=== PATIENT | female | born 1965 | race Caucasian/White ===

== ENCOUNTER 2017-07-28 13:38 | Emergency (ER) | payer SELFPAY ==
[~2017-07-28] VITALS: Ht 156.2 cm; Wt 75.0 kg
[2017-07-28 13:39] VITALS: BP 116/77; PULSE 104; RESP 20; TEMP 100.2; O2SAT 97
[2017-07-28] MEDS ORDERED: PRED20 PO (14:42)
[2017-07-28] MEDS ORDERED: BENZ100 PO (14:42)
[2017-07-28] MEDS ORDERED: ALBUAER3 INH (14:42)
[2017-07-28] MEDS ORDERED: AZIT250T3 PO (14:42)
--- NOTE | 2017-07-28 14:42 | PD ---
HPI Chief Complaint: Cold / Flu Symptoms Time Seen by Provider: 14:25 Travel History International Travel<30 days: No Contact w/Intl Traveler<30days: No Traveled to known affect area: No History of Present Illness HPI This is a 51-year-old female here with productive cough and colored sputum for the last 3 days. Patient reports she has had mild URI-like symptoms for the last 3 weeks. She reports all symptoms improved with the exception of a cough which is now productive. Denies fevers, chills, shortness of breath. She does report a harsh sounding cough which keeps her up at night. She is not a smoker. Symptom severity is moderate. No aggravating or alleviating factors. PFSH Past Medical History Medical History: Denies Significant Hx Tetanus Vaccination: Unknown ?: Not : 3 Para: 3 Past Surgical History Surgical History: No Previous Surgery Social History Alcohol Use: No Tobacco Use: No Substance Use: No Allergies-Medications (Allergen,Severity, Reaction): Coded Allergies: No Known Allergies (Unverified , 07/28/17) Reported Meds & Prescriptions Reported Meds & Active Scripts Active No Active Prescriptions or Reported Medications Review of Systems Except as stated in HPI: all other systems reviewed are Neg General / Constitutional: No: Fever Eyes: No: Visual changes HENT: No: Headaches Cardiovascular: No: Chest Pain or Discomfort Respiratory: Positive: Cough Gastrointestinal: No: Abdominal Pain Genitourinary: No: Dysuria Musculoskeletal: No: Pain Skin: No Rash Physical Exam Narrative GENERAL: Alert well-appearing 51-year-old male SKIN: Warm and dry. No rash HEAD: Normocephalic. EYES: Pupils equal, round, reactive to light. EOMs intact. No injection or drainage. Ear/nose/throat: No TM erythema. Clear nasal discharge. Mild pharyngeal erythema without tonsillar hypertrophy or exudate. NECK: Supple, trachea midline. No meningismus CARDIOVASCULAR: Regular rate and rhythm RESPIRATORY: Breath sounds equal bilaterally. No accessory muscle use. Rhonchorous cough GASTROINTESTINAL: Abdomen soft, non-tender, nondistended. MUSCULOSKELETAL: No cyanosis, or edema. BACK: No CVA tenderness. Data Data Last Documented VS Vital Signs Date Time Temp Pulse Resp B/P (MAP) Pulse Ox O2 Delivery O2 Flow Rate FiO2 07/28/17 13:39 100.2 104 20 116/77 (90) 97 Room Air MDM Medical Decision Making Medical Screen Exam Complete: Yes Emergency Medical Condition: Yes Differential Diagnosis Bronchitis, pneumonia, influenza Narrative Course This is a 51-year-old female here with a productive cough 4 days with URI like symptoms for approximately 3 weeks. She has a low-grade fever 100.2 and mild tachycardia with a heart rate of 104. She is nontoxic appearing. Given the length of her symptoms. Patient will be treated with azithromycin, steroids, bronchodilator, antitussives. She is instructed to follow-up with her primary doctor. Return if new or worsening symptoms. Diagnosis Primary Impression: Bronchitis Referrals: Primary Care Physician Additional Instructions: Medications as directed. Tylenol or ibuprofen for fever. Stay well hydrated by drinking plenty of fluids. Follow-up with her primary doctor. Return if he had new or worsening symptoms. Scripts Benzonatate (Tessalon Perles) 100 Mg Cap 100 MG PO TID Y for COUGH, #15 CAP 0 Refills Prov: Yenny Boyer 07/28/17 Albuterol 8.5 GM Inh (Proair Hfa 8.5 GM Inh) 90 Mcg/Act Aer 2 PUFF INH Q4-6H Y for SHORTNESS OF BREATH, #1 INHALER 0 Refills 108 mcg/actuation Prov: Yenny Boyer 07/28/17 Prednisone (Prednisone) 20 Mg Tab 40 MG PO DAILY, #8 TAB 0 Refills Take 40 mg (2 tablets) daily for 5 days Prov: Yenny Boyer 07/28/17 Azithromycin (Azithromycin) 250 Mg Tab 250 MG PO DIRECTED for Infection, #6 TAB 0 Refills Take 2 tabs (500 mg) on day 1 then 1 tab daily x 4 days. Prov: Yenny Boyer 07/28/17 Disposition: 01 DISCHARGE HOME Condition: Stable Yenny Boyer Jul 28, 2017 14:42
== END 2017-07-28 15:32 | disposition home or self-care (01) ==
LOC: NEPK 13:38
DX: J40 Bronchitis, not specified as acute or chronic (principal)
CPT/HCPCS: 99284